=== PATIENT | male | born 1995 | race Hispanic/Latino ===

== ENCOUNTER 2019-01-29 08:53 | Emergency (ER) | payer SELFPAY ==
[2019-01-29] MEDS ORDERED: CEFTRIAXONE SODIUM 500 MG VIAL ONE (09:43)
[2019-01-29] MEDS ORDERED: AZITHROMYCIN 250 MG TABLET PO ONE (09:43)
[2019-01-29] MEDS ORDERED: LIDOCAINE HCL-MPF 1% 2ML VIAL ONE (09:43)
[2019-01-29] MEDS ORDERED: ONDANSETRON ODT 4 MG TAB ONE (09:44)
[2019-01-29 09:45] LABS: APPEARANCE,URINE Clear (CLEAR); BILIRUBIN,URINE Negative (NEGATIVE); COLOR,URINE Yellow (YELLOW); GLUCOSE, URINE (UA) Negative (NEGATIVE); KETONES,URINE Negative (NEGATIVE); LEUKOCYTE ESTERASE ,URINE Small (NEGATIVE); NITRATE,URINE Negative (NEGATIVE); OCCULT BLOOD,URINE Negative (NEGATIVE); PROTEIN,URINE Negative (NEGATIVE)
[2019-01-29 09:52] LABS: BACTERIA,URINE Rare /HPF (None Seen); MUCUS,URINE Many LPF (None Seen); RBC,URINE 0-1 /HPF (0-1); SQUAMOUS EPITHELIAL CELL,UR Rare /HPF (0-2)
== END 2019-01-29 12:25 | disposition home or self-care (01) ==
LOC: EDH 08:53
DX: A54.01 Gonococcal cystitis and urethritis, unspecified (principal); Z72.0 Tobacco use
CPT/HCPCS: 81001; 87486; 87797; 96372; 99283; J0696; J3490

== ENCOUNTER 2019-04-15 17:22 | Emergency (ER) | payer SELFPAY ==
[2019-04-15] MEDS ORDERED: IBUPROFEN 600 MG TABLET ONE (18:03)
== END 2019-04-15 18:07 | disposition home or self-care (01) ==
LOC: EDH 17:22
DX: S63.591A Other specified sprain of right wrist, initial encounter (principal); Z72.0 Tobacco use; W22.01XA Walked into wall, initial encounter; Y93.89 Activity, other specified; Y92.89 Other specified places as the place of occurrence of the external cause; Y99.8 Other external cause status
CPT/HCPCS: 29125; 73130

== ENCOUNTER 2019-06-17 01:50 | Emergency (ER) | payer OTHER ==
[2019-06-17] MEDS ORDERED: TETRACAINE HCL 0.5% 4 ML OPHTH SOLN ONE (02:29)
[2019-06-17] MEDS ORDERED: NA BORATE/BORIC AC/H2O/NACL 120 ML OPHTH IRRIG SOLN ONE (02:30)
[2019-06-17] MEDS ORDERED: FLUORESCEIN SODIUM 1 STRIP STRIP ONE (02:30)
[2019-06-17] MEDS ORDERED: ERYTHROMYCIN BASE 0.5% OPHTH OINT 1 GM TUBE ONE (03:04)
[2019-06-17] MEDS ORDERED: IBUPROFEN 600 MG TABLET ONE (03:04)
[2019-06-17] MEDS ORDERED: CEFTRIAXONE SODIUM 1 GM ONE (03:37)
[2019-06-17] MEDS ORDERED: LIDOCAINE HCL-MPF 1% 2ML VIAL ONE (03:37)
[2019-06-17] MEDS ORDERED: AZITHROMYCIN 250 MG TABLET PO ONE (03:38)
== END 2019-06-17 04:00 | disposition home or self-care (01) ==
LOC: EDH 01:50
DX: H10.9 Unspecified conjunctivitis (principal); Z72.0 Tobacco use
CPT/HCPCS: 87081; 87110; 96372; 99284; J0696; J3490

== ENCOUNTER 2019-06-30 06:36 | Emergency (ER) | payer SELFPAY ==
[2019-06-30 07:03] LABS: BILIRUBIN,URINE Negative (NEGATIVE); COLOR,URINE Yellow (YELLOW); GLUCOSE, URINE (UA) Negative (NEGATIVE); KETONES,URINE Negative (NEGATIVE); LEUKOCYTE ESTERASE ,URINE Negative (NEGATIVE); NITRATE,URINE Negative (NEGATIVE); OCCULT BLOOD,URINE Negative (NEGATIVE); PROTEIN,URINE Negative (NEGATIVE)
[2019-06-30 07:05] LABS: APPEARANCE,URINE CLEAR (CLEAR)
[2019-06-30] MEDS ORDERED: CEFTRIAXONE SODIUM 500 MG VIAL ONE (07:46)
[2019-06-30] MEDS ORDERED: AZITHROMYCIN 250 MG TABLET PO ONE (07:46)
[2019-06-30] MEDS ORDERED: LIDOCAINE HCL-MPF 1% 2ML VIAL ONE (07:47)
== END 2019-06-30 08:01 | disposition home or self-care (01) ==
LOC: EDH 06:36
DX: N34.2 Other urethritis (principal); N34.3 Urethral syndrome, unspecified; F12.10 Cannabis abuse, uncomplicated; Z20.9 Contact with and (suspected) exposure to unspecified communicable disease
CPT/HCPCS: 81003; 87486; 87797; 96372; 99284; J0696; J3490

== ENCOUNTER 2020-02-04 14:42 | Emergency (ER) | payer SELFPAY | END 2020-02-04 15:05 | disposition home or self-care (01) | LOC: EDH 14:42 | DX: R30.0 Dysuria (principal); R10.13 Epigastric pain; Z72.0 Tobacco use | CPT/HCPCS: 99281 ==

== ENCOUNTER 2020-06-18 13:52 | Emergency (ER) | payer OTHER ==
[2020-06-18 14:39] LABS: APPEARANCE,URINE Clear (CLEAR); BILIRUBIN,URINE Negative (NEGATIVE); COLOR,URINE Yellow (YELLOW); GLUCOSE, URINE (UA) Negative (NEGATIVE); KETONES,URINE Negative (NEGATIVE); LEUKOCYTE ESTERASE ,URINE Small (NEGATIVE); NITRATE,URINE Negative (NEGATIVE); OCCULT BLOOD,URINE Nonhemolyzed Trace (NEGATIVE); PROTEIN,URINE Negative (NEGATIVE)
[2020-06-18 14:51] LABS: BACTERIA,URINE Few /HPF (None Seen); MUCUS,URINE Few LPF (None Seen); SQUAMOUS EPITHELIAL CELL,UR Rare /HPF (0-2)
[2020-06-18] MEDS ORDERED: SODIUM CHLORIDE 0.9% 1000ML 1,000 ML IV ONE (15:28)
[2020-06-18] MEDS ORDERED: DOXYCYCLINE HYCLATE 100 MG TABLET PO ONE (16:47)
[2020-06-18] MEDS ORDERED: AZITHROMYCIN 250 MG TABLET PO ONE (16:48)
[2020-06-18 16:55] LABS: BASOPHILS % (AUTO) 0.3 % (0.0-5.0); EOSINOPHILS % (AUTO) 0.7 % (0.0-8.0); HEMATOCRIT 45.3 % (42-54); LYMPHOCYTES % (AUTO) 17.2 % (21.0-51.0); MEAN CORPUSCULAR HEMOGLOBIN 30.1 pg (27.0-33.0); MEAN CORPUSCULAR VOLUME 88.5 fL (79-99); MONOCYTES % (AUTO) 11.1 % (3.0-13.0); NEUTROPHILS % (AUTO) 70.3 % (40.0-77.0); PLATELET COUNT (AUTO) 279 K/uL (130-400); RED BLOOD CELL COUNT(AUTO) 5.12 MIL/uL (4.50-6.20); WHITE BLOOD COUNT (AUTO) 9.1 K/uL (4.8-10.8)
[2020-06-18 17:06] LABS: AMPHET/METH SCREEN,URINE NEGATIVE (NEGATIVE); BARBITURATE SCREEN, URINE NEGATIVE (NEGATIVE); BENZODIAZEPINES SCREEN,URINE NEGATIVE (NEGATIVE); CANNABINOID SCREEN,URINE POSITIVE (NEGATIVE); COCAINE SCREEN,URINE POSITIVE (NEGATIVE); OPIATE SCREEN,URINE NEGATIVE (NEGATIVE); PHENCYCLIDINE SCREEN,URINE NEGATIVE (NEGATIVE)
[2020-06-18 17:07] LABS: CREATININE 0.8 mg/dL (0.5-1.5); POTASSIUM 3.9 mmol/L (3.5-5.1)
[2020-06-18 17:11] LABS: ALBUMIN 4.2 g/dL (3.5-5.0); BILIRUBIN,TOTAL 0.8 mg/dL (0.2-1.0); TOTAL PROTEIN, SERUM 7.7 g/dL (6.0-8.3)
== END 2020-06-18 18:00 | disposition home or self-care (01) ==
LOC: EDH 13:52
DX: A64 Unspecified sexually transmitted disease (principal); E86.0 Dehydration; Z72.0 Tobacco use
CPT/HCPCS: 36415; 80053; 80305; 81001; 82550; 84484; 85025; 87486; 87797; 93005; 96360; 99284; J7030